=== PATIENT | female | born 2000 | race Caucasian/White ===

== ENCOUNTER 2021-12-06 13:30 | Emergency (ER) | payer BC, SELFPAY ==
--- NOTE | ~2021-12-06 | CT_ITS ---
EXAMINATION: CT lumbar spine wo con DATE: 12/06/2021 18:47 INDICATION: Low back pain TECHNIQUE: Computed tomography (CT) of the lumbar spine was performed without intravenous contrast. T he dose-length product (DLP) was 710.15 mGy-cm. Iterative reconstruction was used. COMPARISON: None FINDINGS: There is no fracture, dislocation, or subluxation. There is mild loss of intervertebral dis c space height at L5-S1. There is a mild posterior disc bulge at L5-S1. The vertebral body heights ar e normal. IMPRESSION: 1. Mild lumbar spondylosis at L5-S1 without acute findings. Reviewed, dictated and finalized at location F.
[2021-12-06 13:38] VITALS: BP 138/79; PULSE 116; RESP 18; TEMP 36.2; O2SAT 99
--- NOTE | 2021-12-06 16:57 | ED.BACK ---
HPI - Back Pain/Injury General Chief Complaint: Back Pain/Injury Stated Complaint: back pain, no injury Time Seen by Provider: 12/06/21 16:54 Source: patient Mode of arrival: ambulatory Limitations: no limitations History of Present Illness HPI Narrative: Patient is a 21-year-old female who presents the ED with report of lower back pain. Patient is from [place], [place] and rode the train here today to see a friend. She reports having mid lower back pain for the past 2 weeks on and off. She denies any known fall or injury when the pain first began. She states she was evaluated by a physical therapist and was told she may have a L4-5 herniated disc. She does report the pain radiates down bilateral lower extremities. She has been using ibuprofen intermittently and laying flat over the past 2 weeks for relief of the pain. Today, after riding on the train, she experienced spasms in her lower back, which prompted her to come to the ED. Pain worse with movement, walking. She has not taken anything for pain today. She denies any fever, chills, nausea, vomiting, abdominal pain, urinary retention, bowel or bladder incontinence, saddle anesthesia, or weakness in BLE. Related Data Allergies Allergy/AdvReac Type Severity Reaction Status Date / Time fluoxetine Allergy Unknown Unknown Verified 12/06/21 18:17 Review of Systems Review of Systems: CONSTITUTIONAL: Denies fever, chills. CARDIOVASCULAR: Denies chest pain. RESPIRATORY: Denies dyspnea. GASTROINTESTINAL: Denies abdominal pain, nausea, vomiting, incontinence, retention, constipation, or diarrhea. GENITOURINARY: Denies dysuria, incontinence, or hematuria. SKIN: Denies rash or itching. MUSCULOSKELETAL: Reports mid lower back pain, radiating down BLE. NEUROLOGIC: Denies headache, numbness, tingling, saddle anesthesia, or BLE weakness. All systems reviewed & are unremarkable except as noted in HPI and below PMFSH Past Medical History Medical History Anxiety POTS (postural orthostatic tachycardia syndrome) Surgical History Surgical History (Updated 12/06/21 @ 17:24 by Abbie Tucker PA-C) No pertinent past surgical history Social History Social History (Updated 12/06/21 @ 17:24 by Abbie N. Skau, PA-C) Smoking status: Never smoker Exam Narrative: GENERAL: Well appearing, well-nourished, non-toxic, in no acute distress. HEAD: Normocephalic, atraumatic. NECK: Supple. No adenopathy, no masses. RESPIRATORY: Airway patent, respirations nonlabored. Clear to auscultation bilaterally, no rales, rhonchi, wheezing. CARDIOVASCULAR: Borderline tachycardiac with regular rhythm without murmurs, rubs, or gallops. Peripheral pulses 2+ and equal bilaterally. ABDOMINAL: Soft, nontender, nondistended, no hepatosplenomegaly. Normoactive BS. MUSCULOSKELETAL: Moves all extremities. Strength/ROM intact without gross deformities. TTP in lower midline lumbar spine, no step-offs or palpable bony deformities. Mild tenderness in bilateral SI joints, with reproduction of pain, L > R. Positive straight leg raise bilaterally. SKIN: Warm, dry, normal color. No rashes. NEURO: A&O X3. Speech clear. Cranial nerves II-XII grossly intact. Steady gait. No ataxic movements. PSYCHIATRIC: Appropriate mood and affect. Normal interaction. Course Vital Signs Vital signs: Vital Signs Temperature 97.1 F L 12/06/21 13:38 Pulse Rate 116 H 12/06/21 13:38 Respiratory Rate 18 12/06/21 13:38 Blood Pressure 138/79 12/06/21 13:38 Pulse Oximetry 99 12/06/21 13:38 Oxygen Delivery Room Air 12/06/21 13:38 Temperature 97.1 F L 12/06/21 13:38 Pulse Rate 98 12/06/21 20:08 Respiratory Rate 16 12/06/21 20:08 Blood Pressure 130/74 12/06/21 20:08 Pulse Oximetry 100 12/06/21 20:08 Oxygen Delivery Room Air 12/06/21 13:38 MDM - Back Pain/Injury MDM Narrative Medical decision making narrative: Patient presented to ED with 2-week hi
[2021-12-06] MEDS: KETOROLAC (*BKC) 60 MG/2 ML VIAL IM (18:21)
[2021-12-06] MEDS: CYCLOBENZAPRINE HCL 5 MG TABLET PO (19:21)
[2021-12-06 20:08] VITALS: BP 130/74; PULSE 98; RESP 16; O2SAT 100
== END 2021-12-06 20:10 | disposition home or self-care (01) ==
PROVIDERS: Emergency Provider Emergency Medicine
DX: M54.16 Radiculopathy, lumbar region (principal)
CPT/HCPCS: 72131; 81025; 96372; 99284; A9270; J1885